=== PATIENT | male | born 1990 | race Caucasian/White ===

== ENCOUNTER 2017-05-23 14:05 | Emergency (ER) | payer MEDICAID ==
[2017-05-23] MEDS ORDERED: Ampicillin/Sulbactam Na 3 GM in Sodium Chloride 0.9% 100 ML IV ONE (15:00)
[2017-05-23] MEDS ORDERED: Ketorolac 30 MG/ML SDV IVPUSH ONE (15:53)
--- NOTE | 2017-05-23 15:54 | EDM.PDOC ---
ED HPI GENERAL MEDICAL PROBLEM - General Chief Complaint: Genitourinary Problem Stated Complaint: L HIP PAIN Time Seen by Provider: 05/23/17 14:40 Source of Information: Reports: Patient History Limitations: Reports: No Limitations - History of Present Illness INITIAL COMMENTS - FREE TEXT/NARRATIVE: 26-year-old male arrives with right upper leg and groin discomfort for the past 12-24 hours. He was pushing a car out of this no and is afraid he may have developed a hernia or some other injury. The tenderness is on the proximal left thigh and anterior upper leg. No fevers or chills. Onset: Gradual (Over the past 2 days) Location: Reports: Lower Extremity, Left Quality: Reports: Ache, Stabbing Severity: Moderate Worsens with: Reports: Movement Left Groin Pain Score (Numeric/FACES): 7 - Related Data Allergies Allergy/AdvReac Type Severity Reaction Status Date / Time No Known Allergies Allergy Verified 05/23/17 14:29 Home Meds: Home Meds NK [No Known Home Meds] 05/23/17 [History] Past Medical History - Past Health History Medical/Surgical History: Denies Medical/Surgical History Social & Family History - Tobacco Use Smoking Status *Q: Unknown Ever Smoked ED ROS GENERAL - Review of Systems Review Of Systems: See Below Constitutional: Denies: Fever, Chills Respiratory: Denies: Shortness of Breath Cardiovascular: Denies: Chest Pain GI/Abdominal: Denies: Abdominal Pain, Nausea, Vomiting : Denies: Dysuria Skin: Reports: Other (Recent tattoo on his left calf from 4 days ago has surrounding erythema and tenderness) ED EXAM, GENERAL - Physical Exam Exam: See Below Exam Limited By: No Limitations General Appearance: Alert, No Apparent Distress Respiratory/Chest: No Respiratory Distress GI/Abdominal: Soft, Non-Tender (Male) Exam: No Hernia, Normal Inspection Extremities: Other (The left calf has a large relatively new tattoo with marked surrounding swelling and erythema, there is erythema extending through the popliteal area of the knee and around to the anterior thigh to the groin. There are some small but uncomfortable lymph nodes palpable in the left groin) Neurological: Alert, Oriented Course - Vital Signs Last Recorded V/S: Last Vital Signs Temp 97.3 F 05/23/17 14:30 Pulse 81 05/23/17 14:30 Resp 16 05/23/17 14:30 BP 129/73 05/23/17 14:30 Pulse Ox 100 05/23/17 14:30 - Orders/Labs/Meds Meds: Medications Discontinued Medications Generic Name Dose Route Start Last Admin Trade Name Sylvia PRN Reason Stop Dose Admin Ampicillin Sodium/Sulbactam 100 mls @ 200 mls/hr 05/23/17 15:00 05/23/17 15: 29 Sodium 3 gm/ Sodium Chloride IV 05/23/17 15:29 200 mls/hr ONETIME ONE Administration Ketorolac Tromethamine 30 mg 05/23/17 15:53 05/23/17 15:57 Toradol IVPUSH 05/23/17 15:54 30 mg ONETIME ONE Administration - Re-Assessments/Exams Free Text/Narrative Re-Assessment/Exam: 05/23/17 15:50 This patient does not have a hernia, he has lymphadenopathy and lymphangitis from a recent tattoo procedure on the left lower extremity. He was given 3 g of Unasyn IV, and will be discharged on Augmentin 875 mg twice daily for up to 10 days. He was also given 30 mg of IV Toradol prior to discharge. He is encouraged to continue the antibiotic as prescribed and return if worsening despite treatment. He can increase activity as tolerated and use ibuprofen or naproxen for pain. Departure - Departure Time of Disposition: 16:06 Disposition: Home, Self-Care 01 Condition: Fair Clinical Impression: Cellulitis of left leg - Discharge Information Instructions: Cellulitis, Adult Referrals: PCP,None [Primary Care Provider] - Forms: ED Department Discharge Care Plan Goals: Take antibiotic twice daily with food for at least 7 days. Ibuprofen or naproxen will help with pain and increase activity as tolerated. Return any time if you develop significant fevers, worsening redness or pain despite treatment or unable to take the medication due to vomiting or other side effects.
== END 2017-05-23 16:07 | disposition home or self-care (01) ==
LOC: JP.ED 14:05
DX: L03.116 Cellulitis of left lower limb (principal)
CPT/HCPCS: 96365; 96372; 99283; J0295; J1885; J7030

== ENCOUNTER 2017-05-25 22:16 | Emergency (ER) | payer MEDICAID ==
--- NOTE | 2017-05-25 23:19 | EDM.PDOC ---
ED HPI GENERAL MEDICAL PROBLEM - General Chief Complaint: Skin Complaint Stated Complaint: L LEG PAIN Time Seen by Provider: 05/25/17 22:40 Source of Information: Reports: Patient, Family (Girlfriend) History Limitations: Reports: No Limitations - History of Present Illness INITIAL COMMENTS - FREE TEXT/NARRATIVE: left leg cellulitis secondary to tattoo on left lower leg, reports was seen on in ER, treated for cellulitis. Yesterday develops worsen rash. increased redness, itch, increase pain. Rash in on left upper chest, where area was shaved for tattoo, both legs. Girlfriend also has two red sore on right forearm and left breast. 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) Left Leg Pain Score (Numeric/FACES): 9 - Related Data Allergies Allergy/AdvReac Type Severity Reaction Status Date / Time No Known Allergies Allergy Verified 05/23/17 14:29 Home Meds: Home Meds Acetaminophen [Tylenol] 650 mg PO Q4H PRN 05/25/17 [History] Amoxicillin/Potassium Clav [Amox-Clav 875-125 mg Tablet] 875 mg PO BID 05/25/17 [History] Ibuprofen 800 mg PO Q6H PRN 05/25/17 [History] Naproxen 250 mg PO ASDIRECTED 05/25/17 [History] Past Medical History - Past Health History Medical/Surgical History: Denies Medical/Surgical History Dermatologic History: Reports: Cellulitis Other Dermatologic History: worsening cellulitis has progressed from a couple red spots to massive red pustular spots on both legs, chest arms and back in 2 days Social & Family History - Tobacco Use Smoking Status *Q: Current Every Day Smoker Years of Tobacco use: 13 Packs/Tins Daily: 1 - Caffeine Use Caffeine Use: Reports: Soda - Recreational Drug Use Recreational Drug Use: No - Living Situation & Occupation Living situation: Reports: with Significant Other Occupation: Employed ED ROS GENERAL - Review of Systems Review Of Systems: See Below Constitutional: Reports: Fever, Chills HEENT: Reports: No Symptoms Respiratory: Reports: No Symptoms Cardiovascular: Reports: No Symptoms Endocrine: Reports: No Symptoms GI/Abdominal: Reports: No Symptoms, Mucous in Stool : Reports: No Symptoms Musculoskeletal: Reports: Muscle Pain Skin: Reports: Pruritis, Rash, Erythema, Change in Color Neurological: Reports: No Symptoms Psychiatric: Reports: No Symptoms Hematologic/Lymphatic: Reports: No Symptoms Immunologic: Reports: No Symptoms ED EXAM, SKIN/RASH Exam: See Below Exam Limited By: No Limitations General Appearance: Alert, WD/WN, Mild Distress Eye Exam: Bilateral Eye: Normal Inspection Ears: Normal External Exam Nose: Normal Inspection Throat/Mouth: Normal Inspection Head: Atraumatic, Normocephalic Neck: Normal Inspection, Supple Respiratory/Chest: No Respiratory Distress GI/Abdominal: Soft, Non-Tender Back Exam: Normal Inspection, Full Range of Motion Extremities: Leg Pain, Redness Neurological: Alert, Oriented, No Motor/Sensory Deficits Psychiatric: Normal Affect, Normal Mood Skin: Warm, Erythema, Rash, Other (fluid filled red dots at hair, erythema, macupapular, pruritis rash on bilateral legs, left upper chest, his Girlfriend is at bedside with similar rash on left breast and right forearm.) Location, Skin: Chest, Lower Extremity, Right, Lower Extremity, Left Characteristics: Maculopapular, Fine, Patchy, Bullous, Erythematous Associated features: Warmth, Tenderness, Inflammation Lymphatic: No Adenopathy Course - Vital Signs Last Recorded V/S: Last Vital Signs Temp 36.2 C 05/25/17 22:50 Pulse 86 05/25/17 22:50 Resp 18 05/25/17 22:50 BP 139/72 05/25/17 22:50 Pulse Ox 99 05/25/17 22:50 Departure - Departure Time of Disposition: 23:31 Disposition: Home, Self-Care 01 Condition: Good Clinical Impression: At risk for methicillin resistant Staphylococcus aureus infection, Folliculitis - Discharge Information Referrals: PCP,None [Primary Care Provider] - Forms: ED Department Discharge Care Plan Goals: At risk for MRSA infection Folliculitis -start Septra DS take one by mouth two times a day for 10 days -[place] one every 4 to 6 hours as needed for pain (acute) -Benadryl 25mg one to two tablets every 4 to 6 hours as needed for itchy -apply antiseptic ointment to rash two times a day. -continue Tylenol or Motrin for pain or fever discussed avoid skin to skin contact with other family members. washing out showers, bath, bedding return to Clinic, Urgent Care or ER for worsen rash, increased pain, fever, chills, nausea, vomiting, diarrhea or not improved Follow up with Primary Care Provider for a recheck in 3 days if not getting better. - Problem List & Annotations (1) Cellulitis of left leg SNOMED Code(s): 060242227 Code(s): L03.116 - CELLULITIS OF LEFT LOWER LIMB Status: Acute Priority: High Current Visit: Yes (2) At risk for methicillin resistant Staphylococcus aureus infection SNOMED Code(s): 31534790 Code(s): Z91.89 - OTH PERSONAL RISK FACTORS, NOT ELSEWHERE CLASSIFIED Status: Acute Priority: High Current Visit: Yes (3) Folliculitis SNOMED Code(s): 35384972 Code(s): L73.9 - FOLLICULAR DISORDER, UNSPECIFIED Status: Acute Priority : High Current Visit: Yes - Problem List Review Problem List Initiated/Reviewed/Updated: Yes - Assessment/Plan Plan: At risk for MRSA infection Folliculitis -start Septra DS take one by mouth two times a day for 10 days -[place] one every 4 to 6 hours as needed for pain (acute) -Benadryl 25mg one to two tablets every 4 to 6 hours as needed for itchy -apply antiseptic ointment to rash two times a day. -continue Tylenol or Motrin for pain or fever discussed avoid skin to skin contact with other family members. washing out showers, bath, bedding return to Clinic, Urgent Care or ER for worsen rash, increased pain, fever, chills, nausea, vomiting, diarrhea or not improved Follow up with Primary Care Provider for a recheck in 3 days if not getting better.
== END 2017-05-25 23:54 | disposition home or self-care (01) ==
LOC: JP.ED 22:16
DX: L73.9 Follicular disorder, unspecified (principal); F17.210 Nicotine dependence, cigarettes, uncomplicated; Z20.89 Contact with and (suspected) exposure to other communicable diseases
CPT/HCPCS: 99283

== ENCOUNTER 2020-01-03 19:19 | Emergency (ER) | payer MEDICAID ==
[2020-01-03] MEDS ORDERED: Ketorolac 60 MG/2 ML SDV IM ONE (20:39)
--- NOTE | 2020-01-03 20:50 | EDM.PDOC ---
ED HPI GENERAL MEDICAL PROBLEM - General Chief Complaint: General Stated Complaint: SWOLLEN BOTTOM LEFT JAW Time Seen by Provider: 01/03/20 19:35 Source of Information: Reports: Patient History Limitations: Reports: No Limitations - History of Present Illness INITIAL COMMENTS - FREE TEXT/NARRATIVE: chief complaint: dental pain This is a 29 year old male present to ER for evaluation of worsen dental pain. He reports was seen about 1 and 1/2 weeks ago at [facility] for dental pain, given Amoxicillin - which he took all but 4 pills and Motrin. He reports continues to have increase pain and swollen jaw. He reports [facility] - discharges a few months ago. He had the same dental pain- given antibiotics, but he was released before any dental work could be done. 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, Other Medication(s) (finished course of Amoxicillin) Left Lower Tooth/Teeth Pain Score (Numeric/FACES): 9 - Related Data Allergies Allergy/AdvReac Type Severity Reaction Status Date / Time No Known Allergies Allergy Verified 01/03/20 20:20 Home Meds: Home Meds NK [No Known Home Meds] 01/03/20 [History] Past Medical History - Past Health History Medical/Surgical History: Denies Medical/Surgical History HEENT History: Reports: Other (See Below) Other HEENT History: dental caries Musculoskeletal History: Reports: Fracture Neurological History: Reports: Head Trauma Psychiatric History: Reports: ADHD, Addiction, Bipolar Dermatologic History: Reports: Cellulitis Other Dermatologic History: worsening cellulitis has progressed from a couple red spots to massive red pustular spots on both legs, chest arms and back in 2 days - Past Surgical History HEENT Surgical History: Reports: Oral Surgery Social & Family History - Tobacco Use Smoking Status *Q: Current Every Day Smoker Years of Tobacco use: 14 Packs/Tins Daily: 1 - Caffeine Use Caffeine Use: Reports: Coffee, Soda - Recreational Drug Use Recreational Drug Use: Yes Drug Use in Last 12 Months: No Recreational Drug Type: Reports: Methamphetamine - Living Situation & Occupation Living situation: Reports: with Significant Other Occupation: Employed ED ROS GENERAL - Review of Systems Review Of Systems: See Below Constitutional: Reports: Other (dental pain) HEENT: Reports: Dental Pain, Other (facial swelling) Respiratory: Reports: No Symptoms Cardiovascular: Reports: No Symptoms Endocrine: Reports: No Symptoms Skin: Reports: No Symptoms Neurological: Reports: No Symptoms Psychiatric: Reports: No Symptoms Hematologic/Lymphatic: Reports: No Symptoms Immunologic: Reports: No Symptoms ED EXAM, GENERAL - Physical Exam Exam: See Below Exam Limited By: No Limitations General Appearance: Alert, WD/WN, Mild Distress Eye Exam: Bilateral Eye: Normal Inspection Nose: Normal Inspection Throat/Mouth: Normal Voice, No Airway Compromise, Inflammation (right lower gum, tooth # 19 and tooth #30 with large cavities. multi teeth with smaller cavities noted. ) Head: Atraumatic, Normocephalic Neck: Supple, Non-Tender, Full Range of Motion, Lymphadenopathy (R) Respiratory/Chest: No Respiratory Distress, Lungs Clear, Normal Breath Sounds Cardiovascular: Regular Rate, Rhythm Neurological: Alert, Oriented, CN II-XII Intact, Normal Cognition, Normal Gait, Normal Reflexes, No Motor/Sensory Deficits Psychiatric: Normal Affect, Normal Mood Skin Exam: Warm, Dry, Intact, Normal Color, No Rash Lymphatic: Adenopathy (right upper neck) Course - Vital Signs Last Recorded V/S: Last Vital Signs Temp 36.7 C 01/03/20 20:22 Pulse 82 01/03/20 20:22 Resp 20 01/03/20 20:22 BP 113/86 01/03/20 20:22 Pulse Ox 98 01/03/20 20:22 - Orders/Labs/Meds Meds: Medications Discontinued Medications Generic Name Dose Route Start Last Admin Trade Name Sylvia PRN Reason Stop Dose Admin Ketorolac Tromethamine 60 mg 01/03/20 20:39 Toradol IM 01/03/20 20:40 ONETIME ONE - Re-Assessments/Exams Free Text/Narrative Re-Assessment/Exam: 01/03/20 20:48 given Toradol 60 mg IM -Instyl meds Cleocin 150 mg po every 6 hr and Tylenol with codeine one every 4 to 6 hours as needed for pain discussed will need to follow up with Dental Clinic Mr. Lewis agree with plan of care Departure - Departure Time of Disposition: 20:43 Disposition: Home, Self-Care 01 Condition: Good Clinical Impression: Infected dental carries - Discharge Information *PRESCRIPTION DRUG MONITORING PROGRAM REVIEWED*: Not Applicable *COPY OF PRESCRIPTION DRUG MONITORING REPORT IN PATIENT ANISA: Not Applicable Instructions: Dental Abscess, [id number] Referrals: PCP,None [Primary Care Provider] - Forms: ED Department Discharge Care Plan Goals: Dental Infection -Cleocin 150mg cap take one 4 times a day til all gone -Tylenol with codeine take one tablet every 4 to 6 hours as needed for pain #15 -advise to purchase over the counter Orajel for additional comfort -soft diet, avoid hot or cold foods or liquids -return to ER if has increased pain, facial swelling, nausea, vomiting or not improved. -referral to call for appointment in am (01-04-2020) for dental care. Sepsis Event Note (ED) - Evaluation Sepsis Screening Result: No Definite Risk - Focused Exam Vital Signs: Vital Signs Temp Pulse Resp BP Pulse Ox 01/03/20 20:22 36.7 C 82 20 113/86 98 - Problem List & Annotations (1) Infected dental carries SNOMED Code(s): 99528261 Code(s): K02.9 - DENTAL CARIES, UNSPECIFIED; K04.7 - PERIAPICAL ABSCESS WITHOUT SINUS Status: Acute Priority: High Current Visit: Yes - Problem List Review Problem List Initiated/Reviewed/Updated: Yes - Assessment/Plan Plan: Dental Infection -Cleocin 150mg cap take one 4 times a day til all gone -Tylenol with codeine take one tablet every 4 to 6 hours as needed for pain #15 -advise to purchase over the counter Orajel for additional comfort -soft diet, avoid hot or cold foods or liquids -return to ER if has increased pain, facial swelling, nausea, vomiting or not improved. -referral to call for appointment in am (01-04-2020) for dental care.
== END 2020-01-03 21:13 | disposition home or self-care (01) ==
LOC: JP.ED 19:19
DX: K02.9 Dental caries, unspecified (principal); R59.9 Enlarged lymph nodes, unspecified; F17.210 Nicotine dependence, cigarettes, uncomplicated
CPT/HCPCS: 96372; 99282; J1885